=== PATIENT | male | born 1985 | race African-American/Black ===

== ENCOUNTER 2022-11-15 13:03 | Emergency (ER) | payer OTHER ==
[~2022-11-15] VITALS: Ht 175.2 cm; Wt 122.5 kg
[2022-11-15] MEDS ORDERED: MOTRIN 600 MG E4 TAB PO (13:49)
[2022-11-15] MEDS ORDERED: PREDNISONE50 MG PO (13:49)
== END 2022-11-15 14:04 | disposition home or self-care (01) ==
LOC: ED 13:03
DX: M54.50 Low back pain, unspecified (principal)

== ENCOUNTER 2022-12-06 16:41 | Emergency (ER) | payer OTHER ==
[~2022-12-06] VITALS: Ht 175.2 cm; Wt 127.0 kg
[~2022-12-06 16:41] MED LIST: MOTRIN 600 MG E4 TAB PO; PREDNISONE50 MG PO
[2022-12-06] MEDS ORDERED: IBUPROFEN600 MG PO (18:37)
== END 2022-12-06 18:43 | disposition home or self-care (01) ==
LOC: ED 16:41
DX: M72.2 Plantar fascial fibromatosis (principal)

== ENCOUNTER 2022-12-11 14:07 | Emergency (ER) | payer OTHER ==
[~2022-12-11] VITALS: Ht 175.2 cm; Wt 127.0 kg
[~2022-12-11 14:07] MED LIST changes: +IBUPROFEN600 MG PO
[2022-12-11] MEDS ORDERED: MEDROL DOSEPAK4 MG PO (15:31)
[2022-12-11] MEDS ORDERED: NAPROSYN500 MG PO (15:31)
== END 2022-12-11 15:22 | disposition home or self-care (01) ==
LOC: ED 14:07
DX: M10.072 Idiopathic gout, left ankle and foot (principal)